=== PATIENT | male | born 1975 | race Caucasian/White ===

== ENCOUNTER → 2019-03-13 | Outpatient (CLI) | payer BC ==
--- NOTE | 2019-03-13 11:05 | EST ---
EXERCISE STRESS AGE: 44 SEX: M HT: 5'11" WT: 250 PROTOCOL: Miels Stress Test STAGE: 4 DURATION OF EXERCISE: 9:30 HEART RATE REST: 71 BLOOD PRESSURE REST: 103/74 MAXIMUM HEART RATE ACHIEVED: 148 MAXIMUM BLOOD PRESSURE: 152/83 85% MPHR: 148 100% MPHR: 174 METS: 11.1 INDICATIONS: Short of breath. CLINICAL INFORMATION: The patient's baseline rhythm is a sinus mechanism, rate of 71, poor R-wave progression. Baseline blood pressure 103/74 mmHg. Patient exercised on Miles protocol for 9 minutes 30 seconds reaching a peak rate 148 beats per minute which is equal to 85% maximum predicted heart rate. Peak blood pressure 152/83 mmHg. Test was terminated secondary to fatigue. There was no chest pain. Electrocardiograph monitoring revealed no evidence of diagnostic ischemic ST deviation. CONCLUSION: 1. Average exercise tolerance with normal electrocardiograph response to exercise. 2. No significant arrhythmia. MMODL / IJN: [id number] /
== END | disposition home or self-care (01) ==
LOC: RADNMMAIN 08:18
PROVIDERS: ATTEND Family Medicine
DX: R53.81 Other malaise (principal)
CPT/HCPCS: 93017

== ENCOUNTER 2019-04-17 11:29 | Day surgery (SDC) | payer BC ==
[2019-04-15 14:57] VITALS: BMI 36.6
[~2019-04-17 11:29] MED LIST: LACTATED RINGERS 1,000 ML IV SCH; LIDOCAINE 1% 20 ML VIAL (10MG/ML) FOR IV START INTRADERMA PRN
[2019-04-17 11:58] VITALS: TEMP 97.8
[2019-04-17] MEDS ORDERED: LACTATED RINGERS 1,000 ML IV ONE (11:58)
[2019-04-17] MEDS ORDERED: PROPOFOL 10 MG/ML 20 ML VIAL IV ONE (12:57)
--- NOTE | 2019-04-17 13:12 | P.PCN ---
Date of Procedure: 04/17/19 Procedure(s) Performed: BRIEF HISTORY: Patient is a 44-year-old pleasant male scheduled for an elective colonoscopy as a part of evaluation of prior history of colon polyps. His last coloscopy was 5 years ago. He also has family history of colon cancer diagnosed in grandmother and his cousin in the 50s. PROCEDURE PERFORMED: Colonoscopy snare polypectomy. PREOPERATIVE DIAGNOSIS: History of colon polyps. IV sedation per Anesthesia. PROCEDURE: After informed consent was obtained, the patient, was brought into the endoscopy unit. IV sedation was administered by Anesthesia under continuous monitoring. Digital rectal examination was normal. Initially the Olympus CF-160 flexible video colonoscope was then inserted in the rectum, gradually advanced into the cecum without any difficulty. Careful examination was performed as the scope was gradually being withdrawn. Ileocecal valve and the appendiceal orifice were visualized and appeared normal. Prep was excellent. Mucosa of the cecum, ascending colon, transverse colon, descending colon, appeared normal. In the sigmoid: There was a 5 mm polyp that was removed by snare polypectomy. Rest of the sigmoid colon, and rectum appeared normal. Retroflexion was performed in the rectum and no lesions were seen. The patient tolerated the procedure well. IMPRESSION: 5 mm sigmoid colon Polyp status post polypectomy RECOMMENDATIONS: Findings of this examination were discussed with the patient as well as his family. He was advised to follow with the biopsy results. If the biopsy shows an adenoma he can have a repeat colonoscopy in 5 years.
[2019-04-17 13:43] VITALS: BP 113/74; PULSE 65; RESP 18
== END 2019-04-17 14:02 | disposition home or self-care (01) ==
LOC: ORWHC2ENDO 11:29
PROVIDERS: ATTEND Internal Medicine Gastroenterology
DX: Z12.11 Encounter for screening for malignant neoplasm of colon (principal); K63.5 Polyp of colon; K63.0 Abscess of intestine; J45.909 Unspecified asthma, uncomplicated; G47.33 Obstructive sleep apnea (adult) (pediatric); E66.9 Obesity, unspecified; Z86.010 Personal history of colon polyps; Z79.899 Other long term (current) drug therapy; Z68.36 Body mass index [BMI] 36.0-36.9, adult; Z80.0 Family history of malignant neoplasm of digestive organs
CPT/HCPCS: 88305; 45385; J2704

== ENCOUNTER 2020-07-22 15:06 | Emergency (ER) | payer BC ==
[2020-07-22 16:03] LABS: Basophils # (A) 0.2 k/uL (0-0.2); Basophils % (A) 2 %; Eosinophils # (A) 0.3 k/uL (0-0.7); Eosinophils % (A) 3 %; HCT 50.1 % (39.0-53.0); HGB 17.4 gm/dL (13.0-17.5); Lymphocytes % (A) 25 %; MCHC 34.8 g/dL (31.0-37.0); Mean Platelet Volume 7.6; Monocytes # (A) 0.5 k/uL (0-1.0); Monocytes % (A) 6 %; Neutrophils # (A) 4.9 k/uL (1.3-7.7); Neutrophils % (A) 61 %; Platelet Count 288 k/uL (150-450); Poikilocytosis Slight; RBC 5.45 m/uL (4.30-5.90); RDW 13.7 % (11.5-15.5)
[2020-07-22 16:14] LABS: ALT 87 U/L (4-49); AST 242 U/L (17-59); African American GFR (CKD) >90 (>60 ml/min/1.73 sqM); Albumin 4.8 g/dL (3.5-5.0); Alkaline Phosphatase 74 U/L (38-126); Amylase 51 U/L (30-110); Anion Gap 10 mmol/L; Blood Urea Nitrogen 18 mg/dL (9-20); Calcium 9.8 mg/dL (8.4-10.2); Carbon Dioxide 28 mmol/L (22-30); Chloride 108 mmol/L (98-107); Glucose 129 mg/dL (74-99); Lipase 146 U/L (23-300); Non-African American GFR(CKD) >90 (>60 ml/min/1.73 sqM); Potassium 4.2 mmol/L (3.5-5.1); Sodium 146 mmol/L (137-145); Total Bilirubin 0.6 mg/dL (0.2-1.3); Total Protein 8.1 g/dL (6.3-8.2)
--- NOTE | 2020-07-22 16:20 | CT ---
EXAMINATION TYPE: CT abdomen pelvis w con DATE OF EXAM: 07/22/2020 COMPARISON: None HISTORY: RLQ pain with nausea. CT DLP: 1986.6 mGycm CONTRAST: CT scan of the abdomen and pelvis is performed without Oral Contrast and with IV Contrast, patient in jected with 100 mL of Isovue 300. FINDINGS: LUNG BASES-: No visible nodule. No infiltrate. Probable 3.9 cm right pericardial cyst. LIVER/GB: No calcified gallstones. Hepatopedal megaly mild in degree with underlying hepatic steat osis. No space occupying hepatic lesion. Biliary tree is of normal caliber. PANCREAS: No inflammation. No distinct mass. SPLEEN: No splenic enlargement. No lesion seen. ADRENALS: No nodule. No thickening. KIDNEYS/BLADDER: No hydronephrosis. No nephrolithiasis. No distinct renal mass. Urinary bladder g rossly unremarkable. BOWEL: Normal appendix. There is mild wall thickening and inflammatory change involving the sigmoid c olon. There is no evidence for perforation or abscess.Remaining small and large bowel are of normal c aliber. GENITAL ORGANS: No gross abnormality. LYMPH NODES: No greater than 1cm abdominal or pelvic lymph nodes are appreciated. AORTA: No significant abnormality. OSSEOUS STRUCTURES: No significant abnormality is seen. OTHER: No significant additional abnormality is seen. IMPRESSION: 1. Mild uncomplicated sigmoid diverticulitis. 2 probable right pericardial cyst. 3. Fatty liver with mild hepatomegaly.
[2020-07-22] MEDS ORDERED: AMOXIC-POT CLAV 875MG STARTER PACK 2 TAB BTL PO STA (16:24)
[2020-07-22 16:25] LABS: Appearance,Urine Turbid (Clear); Bilirubin,Urine Negative (Negative); Blood,Urine Negative (Negative); Budding Yeast,Urine Many /hpf; Color,Urine Yellow; Glucose,Urine (UA) Negative (Negative); Ketones,Urine Negative (Negative); Leukocyte Esterase,Urine Negative (Negative); Nitrite,Urine Negative (Negative); Protein,Urine Negative (Negative); RBC,Urine <1 /hpf (0-5); Urobilinogen,Urine <2.0 mg/dL (<2.0)
--- NOTE | 2020-07-22 16:25 | ED ---
Abdominal Pain HPI - General Chief Complaint: Abdominal Pain Stated Complaint: abd pain Time Seen by Provider: 07/22/20 15:15 Source: patient Mode of arrival: ambulatory Limitations: no limitations - History of Present Illness Initial Comments: 45-year-old male presenting today for chief complaint of lower abdominal pain. Patient states that he has had diffuse lower abdominal pain for the past 3 weeks. He states he was seen by his primary care provider today and was told to come to the emergency department to rule out mass or other etiologies of pain. States the pain is intermittent he denies any nausea vomiting diarrhea fevers he denies lack of appetite. Patient states that he was drinking last night he denies any upper abdominal pain chest pain shortness of breath patient is noticeable complaints upon arrival he appears well nontoxic no acute distress in good spirits - Related Data Home Medications Medication Instructions Recorded Confirmed Loratadine 10 mg PO DAILY PRN 07/22/20 07/22/20 [place]-3 Fatty Acids/Fish Oil [Fish 1 cap PO DAILY 07/22/20 07/22/20 Oil 1,000 mg Softgel] Previous Rx's Medication Instructions Recorded Amoxic-Pot Clav 875-125Mg 1 tab PO Q12HR 10 Days #20 tab 07/22/20 [Augmentin 875-125] Allergies Allergy/AdvReac Type Severity Reaction Status Date / Time feathers Allergy Unknown Verified 07/22/20 15:48 Review of Systems ROS Statement: Those systems with pertinent positive or pertinent negative responses have been documented in the HPI. ROS Other: All systems not noted in ROS Statement are negative. Past Medical History Past Medical History: Asthma, Sleep Apnea/CPAP/BIPAP Additional Past Medical History / Comment(s): hemorrhoids, History of Any Multi-Drug Resistant Organisms: None Reported Past Surgical History: Ear Surgery Additional Past Surgical History / Comment(s): colonoscopy, vasectomy Past Anesthesia/Blood Transfusion Reactions: Motion Sickness Past Psychological History: No Psychological Hx Reported Smoking Status: Never smoker Past Alcohol Use History: Occasional Past Drug Use History: None Reported - Past Family History Father Family Medical History: Deep Vein Thrombosis (DVT) General Exam - General Exam Comments Initial Comments: General: The patient is awake and alert, in no distress Eye: Pupils are equal, round and reactive to light, extra-ocular movements are intact. No nystagmus. There is normal conjunctiva bilaterally. No signs of icterus. Ears, nose, mouth and throat: There are moist mucous membranes and no oral lesions. Neck: The neck is supple, there is no tenderness or JVD. Cardiovascular: There is a regular rate and rhythm. No murmur, rub or gallop is appreciated. Respiratory: Lungs are clear to auscultation, respirations are non-labored, breath sounds are equal. No wheezes, stridor, rales, or rhonchi. Gastrointestinal: Soft, non-distended, mild rlq and llq pain to palpation of the abdomen, no ventral hernia appreciated, abdomen without masses or organomegaly noted. There is no rebound or guarding present. Musculoskeletal: Normal ROM, no tenderness. Strength 5/5. Sensation intact. radial pulses equal bilaterally 2+. Neurological: A&O x 3. CN II-XII intact grossly, There are no obvious motor or sensory deficits. Coordination appears grossly intact. Speech is normal. Skin: Skin is warm and dry and no rashes or lesions are noted. Psychiatric: Cooperative, appropriate mood & affect, normal judgment. Limitations: no limitations Course Vital Signs 07/22/20 07/22/20 15:11 16:37 Temperature 98.7 F 98.2 F Pulse Rate 75 76 Respiratory 16 18 Rate Blood Pressure 112/74 113/79 O2 Sat by Pulse 99 99 Oximetry Medical Decision Making - Medical Decision Making CT revealed a non-complicated diverticulitis no leukocytosis patient is afebrile no evidence of appendicitis. Patient appears well nontoxic he prefers discharge at this time patient was initiated on oral antibiotics and is to follow-up withPCPpatient states he did recently have a colonoscopy however I recommended they did follow-up with gastroenterology. - Lab Data Result diagrams: 07/22/20 15:51 07/22/20 15:51 Lab Results 07/22/20 07/22/20 07/22/20 Range/Units 15:51 15:51 15:51 WBC 8.0 (3.8-10.6) k/uL RBC 5.45 (4.30-5.90) m/uL Hgb 17.4 (13.0-17.5) gm/dL Hct 50.1 (39.0-53.0) % MCV 92.0 (80.0-100.0) fL MCH 32.0 (25.0-35.0) pg MCHC 34.8 (31.0-37.0) g/dL RDW 13.7 (11.5-15.5) % Plt Count 288 (150-450) k/uL MPV 7.6 Neutrophils % 61 % Lymphocytes % 25 % Monocytes % 6 % Eosinophils % 3 % Basophils % 2 % Neutrophils # 4.9 (1.3-7.7) k/uL Lymphocytes # 2.0 (1.0-4.8) k/uL Monocytes # 0.5 (0-1.0) k/uL Eosinophils # 0.3 (0-0.7) k/uL Basophils # 0.2 (0-0.2) k/uL Poikilocytosis Slight Sodium 146 H (137-145) mmol/L Potassium 4.2 (3.5-5.1) mmol/L Chloride 108 H (98-107) mmol/L Carbon Dioxide 28 (22-30) mmol/L Anion Gap 10 mmol/L BUN 18 (9-20) mg/dL Creatinine 0.84 (0.66-1.25) mg/dL Est GFR (CKD-EPI)AfAm >90 (>60 ml/min/1.73 sqM) Est GFR (CKD-EPI)NonAf >90 (>60 ml/min/1.73 sqM) Glucose 129 H (74-99) mg/dL Plasma Lactic Acid Gab[place] 2.0 (0.7-2.0) mmol/L Calcium 9.8 (8.4-10.2) mg/dL Total Bilirubin 0.6 (0.2-1.3) mg/dL AST 242 H (17-59) U/L ALT 87 H (4-49) U/L Alkaline Phosphatase 74 (38-126) U/L Total Protein 8.1 (6.3-8.2) g/dL Albumin 4.8 (3.5-5.0) g/dL Amylase 51 (30-110) U/L Lipase 146 (23-300) U/L Urine Color Urine Appearance (Clear) Urine pH (5.0-8.0) Ur Specific [place] (1.001-1.035) Urine Protein (Negative) Urine Glucose (UA) (Negative) Urine Ketones (Negative) Urine Blood (Negative) Urine Nitrite (Negative) Urine Bilirubin (Negative) Urine Urobilinogen (<2.0) mg/dL Ur Leukocyte Esterase (Negative) Urine RBC (0-5) /hpf Urine WBC Clumps (None) /hpf Urine Yeast (Budding) (None) /hpf 07/22/20 Range/Units 16:05 WBC (3.8-10.6) k/uL RBC (4.30-5.90) m/uL Hgb (13.0-17.5) gm/dL Hct (39.0-53.0) % MCV (80.0-100.0) fL MCH (25.0-35.0) pg MCHC (31.0-37.0) g/dL RDW (11.5-15.5) % Plt Count (150-450) k/uL MPV Neutrophils % % Lymphocytes % % Monocytes % % Eosinophils % % Basophils % % Neutrophils # (1.3-7.7) k/uL Lymphocytes # (1.0-4.8) k/uL Monocytes # (0-1.0) k/uL Eosinophils # (0-0.7) k/uL Basophils # (0-0.2) k/uL Poikilocytosis Sodium (137-145) mmol/L Potassium (3.5-5.1) mmol/L Chloride (98-107) mmol/L Carbon Dioxide (22-30) mmol/L Anion Gap mmol/L BUN (9-20) mg/dL Creatinine (0.66-1.25) mg/dL Est GFR (CKD-EPI)AfAm (>60 ml/min/1.73 sqM) Est GFR (CKD-EPI)NonAf (>60 ml/min/1.73 sqM) Glucose (74-99) mg/dL Plasma Lactic Acid [place] (0.7-2.0) mmol/L Calcium (8.4-10.2) mg/dL Total Bilirubin (0.2-1.3) mg/dL AST (17-59) U/L ALT (4-49) U/L Alkaline Phosphatase (38-126) U/L Total Protein (6.3-8.2) g/dL Albumin (3.5-5.0) g/dL Amylase (30-110) U/L Lipase (23-300) U/L Urine Color Yellow Urine Appearance Turbid (Clear) Urine pH 7.0 (5.0-8.0) Ur Specific [place] 1.020 (1.001-1.035) Urine Protein Negative (Negative) Urine Glucose (UA) Negative (Negative) Urine Ketones Negative (Negative) Urine Blood Negative (Negative) Urine Nitrite Negative (Negative) Urine Bilirubin Negative (Negative) Urine Urobilinogen <2.0 (<2.0) mg/dL Ur Leukocyte Esterase Negative (Negative) Urine RBC <1 (0-5) /hpf Urine WBC Clumps Many H (None) /hpf Urine Yeast (Budding) Many H (None) /hpf Disposition Clinical Impression: Pericardial cyst, Diverticulitis Disposition: HOME SELF-CARE Condition: Good Instructions (If sedation given, give patient instructions): Diverticulitis (ED), Diverticulitis Diet (ED) Additional Instructions: Please use medication as discussed. Please follow-up with family doctor in the next 2 days. Recommend outpatient GI follow-up as discussed. Please return to emergency room if the symptoms increase or worsen or for any other concerns. Prescriptions: Amoxic-Pot Clav 875-125Mg [Augmentin 875-125] 1 tab PO Q12HR 10 Days #20 tab Is patient prescribed a controlled substance at d/c from ED?: No Referrals: Nilda Read MD [Primary Care Provider] - 1-2 days Dina Montalvo MD [STAFF PHYSICIAN] - 1-2 days Time of Disposition: 16:24
[2020-07-22 16:38] VITALS: BP 113/79; PULSE 76; RESP 18; TEMP 98.2
== END 2020-07-22 16:38 | disposition home or self-care (01) ==
LOC: EC 15:06
DX: K57.32 Diverticulitis of large intestine without perforation or abscess without bleeding (principal); Q24.8 Other specified congenital malformations of heart; G47.30 Sleep apnea, unspecified; Z79.899 Other long term (current) drug therapy; Z91.09 Other allergy status, other than to drugs and biological substances
CPT/HCPCS: 36415; 80053; 82150; 83605; 83690; 85025; 81001; 74177; 99284; Q9967

== ENCOUNTER → 2021-10-14 | Outpatient (CLI) | payer BC ==
--- NOTE | 2021-10-14 08:15 | US ---
EXAMINATION TYPE: US liver DATE OF EXAM: 10/14/2021 COMPARISON: CT July 22, 2020 CLINICAL HISTORY: R94.5ABN LIVER. EXAM MEASUREMENTS: Liver Length: 13.8 cm Gallbladder Wall: 0.1 cm CBD: 0.2 cm Right Kidney: 11.0 x 5.3 x 5.6 cm Pancreas: Mostly obscured by overlying bowel gas, portions visualized wnl Liver: Increased attenuation Gallbladder: wnl Evidence for sonographic Bahena's sign: no CBD: wnl Right Kidney: wnl Suboptimal evaluation of pancreas on initial images due to shadowing from overlying bowel gas. Hetero geneous hyperechoic appearance of liver redemonstrated. No suspicious masses or ductal dilatation. No right-sided hydronephrosis. No intraluminal gallstones. IMPRESSION: Diffuse fatty infiltration of liver redemonstrated.
== END | disposition home or self-care (01) ==
LOC: RADUSWWP 07:33
PROVIDERS: ATTEND Family Medicine
DX: K76.0 Fatty (change of) liver, not elsewhere classified (principal)
CPT/HCPCS: 76705